=== PATIENT | male | born 1960 | race Two or more races ===

== ENCOUNTER 2020-02-10 08:26 | Emergency (ER) | payer MEDICARE, OTHER ==
[~2020-02-10] VITALS: Ht 177.8 cm; Wt 90.7 kg
--- NOTE | 2020-02-10 08:42 | NUR ---
Patient came to ED BIB [facility] 61 [facility] c/c cough ,body aches patient tested for covid pending result patient @ this moment awake alert non distress 96 % on monitor ,93 HR ,contimnue to monitor
[2020-02-10] MEDS ORDERED: DUTA0.5C16 PO (08:50)
[2020-02-10] MEDS ORDERED: TAMS-12 PO (08:50)
[2020-02-10] MEDS ORDERED: PHEN100C4 PO (08:50)
[2020-02-10] MEDS ORDERED: OMEP40CA13 PO (08:50)
[2020-02-10] MEDS ORDERED: FINA5TAB11 PO (08:50)
--- NOTE | 2020-02-10 09:28 | NUR ---
Radiology @ bedside CXR
[2020-02-10] MEDS ORDERED: ONDANSETRON HCL/PF 4 MG/2 ML VIAL IV ONE (09:30)
[2020-02-10 09:43] LABS: BASOPHILS % (AUTO) 0.3 % (0.0-2.0); EOSINOPHILS % (AUTO) 0.3 % (0.0-6.0); HEMATOCRIT 38 % (39-51); HEMOGLOBIN 13.3 g/dL (13.5-17.5); LYMPHOCYTES # (AUTO) 2.4 /CMM (0.8-4.8); LYMPHOCYTES % (AUTO) 47.6 % (20.0-44.0); MEAN CORPUSCULAR HGB CONC 35 g/dl (31.0-36.0); MEAN CORPUSCULAR VOLUME 93 fL (80-96); MONOCYTES # (AUTO) 0.4 /CMM (0.1-1.30); MONOCYTES % (AUTO) 7.4 % (2.0-12.0); NEUTROPHILS # (AUTO) 2.2 /CMM (1.8-8.9); NEUTROPHILS % (AUTO) 44.4 % (43.0-81.0); PLATELET COUNT (AUTO) 98 /CMM (150-450)
[2020-02-10 09:52] LABS: CALCIUM, SERUM 8.1 mg/dL (8.5-10.1); CREATININE 1.1 mg/dL (0.6-1.3); POTASSIUM 4.6 mmol/L (3.5-5.1)
[2020-02-10 10:36] LABS: BAND % (MANUAL) 2 % (0.0-5.0); LYMPHOCYTES % (MANUAL) 41 % (16-48); MONOCYTES % (MANUAL) 7 % (0-11.0); NEUTROPHILS % (MANUAL) 49 (42-76); REACTIVE LYMPHOCYTES 1 % (0-0)
--- NOTE | 2020-02-10 11:05 | NUR ---
Patient discharged to home in stable condition. Written and verbal after care instructions given. Patient verbalizes understanding of instruction.
[2020-02-10 11:07] VITALS: BP 123/78
--- NOTE | 2020-02-10 11:09 | NUR ---
Patientawake alert noted ambultory stated his friend will pick hime up patient agrees to see PMD in AM
== END 2020-02-10 11:20 | disposition home or self-care (01) ==
LOC: ER 08:27
DX: R05 Cough (principal); R53.1 Weakness; Z59.0 Homelessness; Z79.899 Other long term (current) drug therapy
CPT/HCPCS: 36415; 71045-TC; 80048-TC; 85025-TC